=== PATIENT | female | born 1945 | race Two or more races ===

== ENCOUNTER 2017-06-23 12:54 | Outpatient (CLI) | payer OTHER ==
[~2017-06-23 12:54] MED LIST: OSCILLOCOCCINUM; PREMPRO 0.3 MG/1 TAB PO; TUSSIN COU10 MG/5 ML
== END 2017-06-23 13:00 | disposition home or self-care (01) ==
LOC: RAD 12:54
DX: M54.5 Low back pain (principal); R14.0 Abdominal distension (gaseous)

== ENCOUNTER 2020-04-24 08:57 | Emergency (ER) | payer OTHER ==
[~2020-04-24] VITALS: Ht 162.6 cm; Wt 54.0 kg
== END 2020-04-24 14:30 | disposition home or self-care (01) ==
LOC: ER 08:57
DX: N39.0 Urinary tract infection, site not specified (principal); B96.29 Other Escherichia coli [E. coli] as the cause of diseases classified elsewhere; R30.0 Dysuria; R41.0 Disorientation, unspecified; Z03.818 Encounter for observation for suspected exposure to other biological agents ruled out